=== PATIENT | male | born 1990 | race Caucasian/White ===

== ENCOUNTER 2018-01-20 01:05 | Emergency (ER) | payer SELFPAY ==
[2018-01-20] MEDS: LIDOCAINE/MYLANTA 40 ML BTL PO (05:58)
[2018-01-20] MEDS: DEXAMETHASONE 10 MG/ML 1 ML INJ IM (05:58)
[2018-01-20] MEDS: PENICILLIN G BENZ 1.2 MIL UNIT SYG IM (06:03)
== END 2018-01-20 08:31 | disposition home or self-care (01) ==
LOC: FTE 01:05
DX: J02.0 Streptococcal pharyngitis (principal); F17.210 Nicotine dependence, cigarettes, uncomplicated
CPT/HCPCS: 96372; 99284-25

== ENCOUNTER 2018-01-22 07:39 | Emergency (ER) | payer SELFPAY ==
[2018-01-22] MEDS: morphine 4 MG/ML VIAL IV (08:08)
[2018-01-22] MEDS: ONDANSETRON 4 MG INJ IV (08:08)
[2018-01-22] MEDS: SOD CHLORIDE 0.9% 1,000 ML IV (08:09)
[2018-01-22 08:41] LABS: ADD MAN DIFF? NO
[2018-01-22 09:07] LABS: WHITE BLOOD COUNT 11.2 10^3/ul (4.8-10.8)
[2018-01-22 09:07] LABS: BASOPHILS % 0.2 % (0.0-2.0); EOSINOPHILS % 0.3 % (0.0-7.0); HEMATOCRIT 42.6 % (42.0-52.0); HEMOGLOBIN 14.2 g/dl (14.0-18.0); LYMPHOCYTES # 2.3 10^3/ul (0.8-2.9); LYMPHOCYTES % 20.4 % (15.0-51.0); MEAN CORPUSCULAR HEMOGLOBIN 28.9 pg (29.0-33.0); MEAN CORPUSCULAR HGB CONC 33.3 g/dl (32.0-37.0); MEAN CORPUSCULAR VOLUME 86.8 fl (82.0-101.0); MONOCYTE # 1.1 10^3/ul (0.3-0.9); MONOCYTES % 9.4 % (0.0-11.0); NEUTROPHIL # 7.8 10^3/ul (1.6-7.5); NEUTROPHILS % 69.3 % (39.0-77.0); PLATELET COUNT 273 10^3/UL (140-415); RED BLOOD COUNT 4.91 10^6/ul (4.70-6.10); RED CELL DISTRIBUTION WIDTH 12.2 % (11.5-14.5)
[2018-01-22 09:09] LABS: BLOOD UREA NITROGEN 19 mg/dl (7-20); CALCIUM 9.2 mg/dl (8.4-10.2); CARBON DIOXIDE 27 mmol/L (21-31); CHLORIDE 101 mmol/L (97-110); CREATININE 0.97 mg/dl (0.61-1.24); GLUCOSE 102 mg/dl (70-220); SODIUM 138 mmol/L (135-144)
[2018-01-22 09:13] LABS: ANION GAP 14 (8-16); POTASSIUM 3.7 mmol/L (3.5-5.1)
[2018-01-22] MEDS: SOD CHLORIDE 0.9% 100 ML (09:55)
[2018-01-22] MEDS: IOHEXOL 300MG/ML 150 ML BTL (09:55)
[2018-01-22] MEDS: METHYLPREDNISOLONE 125 MG INJ IV (10:36)
[2018-01-22] MEDS: CEFTRIAXONE 1 GM/50 ML (PMX) 50 ML IVPB (11:06)
== END 2018-01-22 12:20 | disposition home or self-care (01) ==
LOC: FTE 07:39
DX: J02.0 Streptococcal pharyngitis (principal)
CPT/HCPCS: 70491; 80048; 85025; 96361; 96374; 96375; 99285-25